=== PATIENT | female | born 1975 | race Caucasian/White ===

== ENCOUNTER 2024-08-05 16:50 | Emergency (ER) | payer BC, SELFPAY ==
[2024-08-05 17:00] VITALS: BP 116/73; PULSE 79; RESP 18; TEMP 36.4; O2SAT 99
--- NOTE | 2024-08-05 17:12 | ED_ITS ---
HPI - Ear Problem General Chief complaint: Ear Stated complaint: RT Ear Pain Source: patient Mode of arrival: ambulatory Limitations: no limitations History of Present Illness HPI Narrative: 49-year-old female presented for complaint of right ear pain for 10 days. Endorses the pain radiates towards the neck and behind the ear. Endorses intermittent ringing. She is taking ibuprofen. Denies ear drainage, dizziness, nausea, vomiting, fevers or chills. MD Complaint: ear pain Related Data Home Medications ?Medication ?Instructions ?Recorded ?Confirmed ?Last Taken ?Type No Home Medications 08/05/24 08/05/24 Unknown History Allergies Allergy/AdvReac Type Severity Reaction Status Date / Time No Known Allergies Allergy Mild Verified 08/05/24 17:06 Review of Systems Review of Systems: CONSTITUTIONAL: Denies malaise, chills, or fever. EYES: Denies visual changes, redness, or discharge. ENT: Denies rhinorrhea, congestion, sinus pain, and sore throat. Reports ear pain CARDIOVASCULAR: Denies chest pain, palpitations, or edema. RESPIRATORY: Denies cough or dyspnea. GASTROINTESTINAL: Denies abdominal pain, nausea, vomiting, diarrhea SKIN: Denies rash or itching. MUSCULOSKELETAL: Denies myalgia. NEUROLOGIC: Denies headache. All systems reviewed & are unremarkable except as noted in HPI and below PMFSH Past Medical History Medical History (Updated 08/05/24 @ 17:17 by Anayeli Mar APRN) Breast cancer Family History Family History Father Family history of coronary artery disease Sibling Family history of coronary artery disease Social History Social History Smoking status: Heavy tobacco smoker Alcohol intake: current Comments At time of signature, agree with nursing past medical, surgical, social and family history. There is no relevant family history pertinent to the presenting complaint Exam Narrative: GENERAL: Well-appearing EYES: PERRLA, conjunctivae clear ENT: Nares clear. Mucous membranes moist. TMs pearly mcdermott with dull light reflex bilaterally; no tragal tenderness. Oropharynx not erythematous without lesions. no drooling, no hoarseness, no trismus, uvula midline. NECK: Supple. No lymphadenopathy CHEST: Clear to auscultation, breath sounds equal. HEART: Regular rate and rhythm. No murmur heard. SKIN: Warm, dry, no rash. NEURO: Alert and oriented x3. PSYCH: Normal mood and affect Course Course Emergency Course: Patient is aware of diagnosis, understands and agrees to treatment plan. Anticipatory guidance given. Patient agrees to follow-up as directed and is aw are of reasons to seek care at the emergency department. Portions of this record may have been created with voice recognition software Level of Care: Express Care Visit Vital Signs Vital signs: Vital Signs Temperature 97.5 F L 08/05/24 17:00 Pulse Rate 79 08/05/24 17:00 Respiratory Rate 18 08/05/24 17:00 Blood Pressure 116/73 08/05/24 17:00 Pulse Oximetry 99 08/05/24 17:00 Oxygen Delivery Room Air 08/05/24 17:00 Temperature 97.5 F L 08/05/24 17:00 Pulse Rate 79 08/05/24 17:00 Respiratory Rate 18 08/05/24 17:00 Blood Pressure 116/73 08/05/24 17:00 Pulse Oximetry 99 08/05/24 17:00 Oxygen Delivery Room Air 08/05/24 17:00 Reviewed Medical Decision Making MDM Narrative Medical decision making narrative: Discussed physical exam findings c/w ETD. Advised supportive measures and signs/symptoms to go to the ER. Pt is appropriate for outpt treatment and f/u. Differential Diagnosis Differential Diagnosis: Coronavirus, strep pharyngitis, allergic rhinitis, upper respiratory tract infection, sinusitis, rhinosinusitis, nasopharyngitis, viral pharyngitis, otitis media, otitis externa, eustachian tube dysfunction, foreign body, cerumen impaction. Vital Signs Vital Signs: Vital Signs Temperature 97.5 F L 08/05/24 17:00 Pulse Rate 79 08/05/24 17:00 Respiratory Rate 18 08/05/24 17:00 Blood Pressure 116/73 08/05/24 17:00 Pulse Oximetry 99 08/05/24 17:00 Oxygen Delivery Room Air 08/05/24 17:00 Temperature 97.5 F L 08/05/24 17:00 Pulse Rate 79 08/05/24 17:00 Respiratory Rate 18 08/05/24 17:00 Blood Pressure 116/73 08/05/24 17:00 Pulse Oximetry 99 08/05/24 17:00 Oxygen Delivery Room Air 08/05/24 17:00 Discharge Plan Discharge Clinical Impression: Acute dysfunction of eustachian tube Patient Disposition: Home, Self-Care Condition: Stable Instructions: Antibiotic Form, Fluid In The Ear (Serous Otitis Media) (ED) Additional Instructions: Recommend antihistamine such as Benadryl, Zyrtec or Munira along with Flonase nasal spray, 1 spray in each nostril once daily until symptoms improve Tylenol and ibuprofen every 8 hours as needed to reduce fever, pain Please schedule a follow-up visit with your personal physician If your symptoms persist, change or worsen significantly, go to the emergency department for further evaluation. Patient Language: Nepali Prescriptions: No Action No Home Medications Follow-up/Referrals: PHYSICIAN,INFORMATICS APPLICATION ANALYST [Primary Care Provider] - Time of Disposition: 17:15
== END 2024-08-05 17:21 | disposition home or self-care (01) ==
PROVIDERS: Emergency Provider Nurse Practitioner Family
DX: H69.81 Other specified disorders of Eustachian tube, right ear (principal); Z85.3 Personal history of malignant neoplasm of breast; F17.290 Nicotine dependence, other tobacco product, uncomplicated
CPT/HCPCS: 99211; G0463

== ENCOUNTER 2025-01-14 00:33 | Day surgery (SDC) | payer BC, SELFPAY ==
[2025-01-11 12:44] VITALS: BMI 34.5
--- NOTE | 2025-01-11 12:51 | PC.NURSE ---
Report to the Outpatient Waiting Room, entrance under the green pavilion located off [facility], at time _1100_ on date _[id number]_. Planned Procedure Time: _1pm_.? Time changes happen often and if your time is changed the preop area will call you the afternoon before. - You and your visitor will be asked to self-screen and do not enter if you have any COVID symptoms. Please call surgeon if you need to reschedule. - A mask is optional within the hospital at this time. Patients may have clear liquids (water, carbonated beverages, clear teas, apple juice) until 3 hours prior to surgery with a maximum of 20 ounces. - No food from midnight until time of surgery and no smoking, or chewing tobacco (or any form of nicotine). No chewing gum, candy or mints. Take only the following medications with a SIP of water on the morning of surgery: ____None DO NOT STOP ANY OF YOUR OTHER PRESCRIPTION MEDICATIONS PRIOR TO SURGERY EXCEPT THE FOLLOWING Hold all vitamins and supplements for 3 days per anesthesiologist. Medications to discontinue per physician Date to take last dose Please no make-up, nail frisian, hairspray, perfume, deodorant, or body powder the day of surgery.? No jewelry (including any body piercings) or valuables the day of surgery, leave them at home.? Please take a shower or bath the night before, or the morning of, surgery with an antibacterial soap.? Wear comfortable, loose fitting clothing.? - Jewelry must be removed prior to entering the operating room.? Rings and piercings that are not removed may be cut off. - The hospital will not accept responsibility for valuables.? - Please leave all valuables, including medications, at home the day of surgery. If you are going home after surgery, a licensed delivery driver/customer service must drive you home.? - NO public transportation without another adult if you receive anesthesia. - We recommend that an adult stay with you for 24 hours following discharge. - We also recommend that you do not drive, make important decision, drink alcoholic beverages, or take any drugs that were not prescribed by your health care provider for at least 24 hours after your discharge time. Follow any additional instructions given to you from your surgeon. Telephone instructions given to __Angel___and asked if any additional questions and then verbalized understanding. Patient advised to call surgeon office or pre surgery nurse liaison [phone] if any additional questions.
[2025-01-14] VITALS (7 sets, daily range): BP systolic 112–136; BP diastolic 72–91; PULSE 65–89; RESP 14–19; TEMP 36.4–36.6; O2SAT 94–100
--- NOTE | ~2025-01-14 | XR_ITS ---
EXAMINATION: XR surgery orthopedic DATE: 01/14/2025 15:10 INDICATION: Right foot surgery TECHNIQUE: 2 images of portions of the right mid and forefoot were obtained during procedure performe d by Dr. Stark. Radiologist was not present for the imaging or procedure. The amount of fluoroscop y time used during this procedure was 0.6 minutes. Total DAP was 2.42 cGym^2. COMPARISON: None. FINDINGS: Dorsal plate and screw fixation spanning the first tarsal metatarsal joint. There is a cannulated com pression screw extending from medial to lateral across the base of the first and second metatarsals. Likely closing wedge osteotomy with staple fixation at the medial side of the proximal metaphyseal re gion of the first proximal phalanx. No fractures identified. 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 IMPRESSION: 1. Fluoroscopy utilized during orthopedic procedure at the right mid and forefoot as detailed above. See procedure note for further detail. Reviewed, dictated and finalized at location B. IMPRESSION: 1. Fluoroscopy utilized during orthopedic procedure at the right mid and forefo ot as detailed above. See procedure note for further detail.
--- OUTSIDE RECORDS SUMMARY | 2025-01-14 00:36 | XMS_ITS | Referral Summary ---
Author Organization [facility] Address [address] [place] [address] Care Team Providers Care Steam Drier Operator Name Role Phone No, Physician Primary Care Provider [phone] Allergies No known active allergies Medications meloxicam (MOBIC) 15 mg tablet Take 1 tablet (15 mg total) by mouth daily with breakfast Take 1 daily with food 30 tablet 4 Active Active Problems Problem Noted Date Diagnosed Date Arthralgia of shoulder 01/24/2012 Patellofemoral pain syndrome 01/24/2012 Social History Tobacco Use Types Packs/Day Years Used Date Smoking Tobacco: Every Day Cigarettes Tobacco Cessation:Ready to Q uit: Not Asked; Counseling Given: Not Answered Alcohol Use Standard Drinks/Week Comments Yes 0 (1 standard drink = 0.6 oz pur e alcohol) Comments Unknown Sex and Gender Information Value Date Recorded Sex Assigned at Not on file Legal Sex Female 1:[address] Gender Identity Not on file Sexual Orientation Not on file Last Filed Vital Signs Vital Sign Reading Time Taken Comments Blood Pressure - - Pulse - - Temperature - - Respiratory Rate - - Oxygen Saturation - - Inhaled Oxygen Concentration - - Weight 98 kg (216 lb) 04/08/2024 5:14 PM CDT Height 170.2 cm (5' 7) 04/08/2024 5:14 PM CDT Body Mass Index 33.83 04/08/2024 5:14 PM CDT Plan of Treatment Not on file [place] Care Teams Steam Drier Operator Relationship Specialty Start Date End Date No, Physician PCP - General 04/08/24
--- OUTSIDE RECORDS SUMMARY | 2025-01-14 00:36 | XMS_ITS | Clinical Summary ---
Author Organization [facility] Address [address] [place] [address] Care Team Providers Care Supervisor Ticket Sales Name Role Phone No, Physician Primary Care Provider [phone] Allergies No known active allergies Medications meloxicam (MOBIC) 15 mg tablet Take 1 tablet (15 mg total) by mouth daily with breakfast Take 1 daily with food 30 tablet 4 Active Active Problems Problem Noted Date Diagnosed Date Arthralgia of shoulder 01/24/2012 Patellofemoral pain syndrome 01/24/2012 Surgical History Surgery Date Site/Laterality Comments CHOLECYSTECTOMY 2005 Cholecystectomy Family History Medical History Relation Name Comments Heart disease Father Heart disease; Heart disease Other Family history of Heart disease; Relation Name Status Comments Father Other Social History Tobacco Use Types Packs/Day Years Used Date Smoking Tobacco: Every Day Cigarettes Tobacco Cessation:Ready to Q uit: Not Asked; Counseling Given: Not Answered Alcohol Use Standard Drinks/Week Comments Yes 0 (1 standard drink = 0.6 oz pur e alcohol) Comments Unknown Sex and Gender Information Value Date Recorded Sex Assigned at Not on file Legal Sex Female 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 Gender Identity Not on file Sexual Orientation Not on file Obstetrics History Last Filed Vital Signs Vital Sign Reading Time Taken Comments Blood Pressure - - Pulse - - Temperature - - Respiratory Rate - - Oxygen Saturation - - Inhaled Oxygen Concentration - - Weight 98 kg (216 lb) 04/08/2024 5:14 PM CDT Height 170.2 cm (5' 7) 04/08/2024 5:14 PM CDT Body Mass Index 33.83 04/08/2024 5:14 PM CDT Plan of Treatment Health Maintenance Due Date Last Done Comments Breast Cancer Screening-Mammogram 1974 Cervical Cancer Screening 1974 Colon Cancer Screening-Colonoscopy 1974 Depression Screening 1974 Hepatitis C Screening 1974 DTaP/Tdap/Td Vaccine (1 - Tdap) 1985 Hepatitis B Screening 1992 Regular Well Visit/Exam 18-64 1992 Pneumococcal vaccine <65 (1 of 2 - PCV) 1993 Zoster Vaccine (1 of 2) 2024 Influenza Vaccine (Season Ended) 2025 [place] Care Teams Supervisor Ticket Sales Relationship Specialty Start Date End Date No, Physician PCP - General 04/08/24
--- NOTE | 2025-01-14 07:06 | WPDHPUPDATE1 ---
History and Physical Update Update Date/Time: 01/14/25 07:06 History and Physical has been reviewed, including an updated exam of the patient. There are NO changes in the patient's condition. Risks, benefits, and alternatives have been discussed and questions answered. Patient agrees to proceed with procedure.
[2025-01-14] MEDS: LACTATED RINGERS 1,000 ML 30 ML IV CONT (12:00)
--- NOTE | 2025-01-14 12:44 | P.PNAN_ITS ---
Anes - Initial Pre Proc Eval Procedure: Operation Date: 01/14/25 13:00 Proposed Procedures p Lapidus Bunionectomy Right Foot, Magdy Phalangeal Osteotomy Right Hallux - Brain Stark Jr., DPM Date/Time: 01/14/25 12:44 Surgeon: Brain Stark Jr., DPM Pre Op Diagnosis: Bunion Right Foot Patient Data Age: 49 Gender: F Height: 1.7 m Weight: 101.2 kg Last Vital Signs Temp 36.6 C 01/14/25 12:00 Pulse 87 01/14/25 12:00 Resp 16 01/14/25 12:00 BP 115/75 01/14/25 12:00 Pulse Ox 98 01/14/25 12:00 O2 Del Method Room Air 01/14/25 12:00 Allergies Allergy/AdvReac Type Severity Reaction Status Date / Time No Known Allergies Allergy Mild Verified 01/14/25 12:40 Home Medications ?Medication ?Instructions ?Recorded ?Confirmed ?Type No Home Medications 08/05/24 01/11/25 History Patient hx anesthesia problems: none Family hx anesthesia problems: none Results Review: All pre-operative results and documents have been reviewed as part of the pre- operative evaluation. [facility] Past Medical History Medical History Breast cancer Family History Family History Father Family history of coronary artery disease Sibling Family history of coronary artery disease Social History Social History Smoking status: Former smoker Smoking end date: 07/13/22 Alcohol intake: former Living arrangements: with family Spiritual care concerns: No Anes - Eval Final PreProcedure Day of Procedure 01/14/25 12:44 Patient weight: obese Heart: regular rate and rhythm Lungs: decreased breath sounds Airway: Mallampati scale class II Neurological: alert and oriented Last oral intake: >/= 8 hours ASA classification: III Emergent: no Anesthesia type and monitoring: general LMA and standard monitoring Results Review: All pre-operative results and documents have been reviewed as part of the pre- operative evaluation. Informed Consent: The patient's anesthetic plan and its attendant risks and benefits were discussed with the patient/family/POA. Questions were solicited and answers provided to the satisfaction of the patient/family/POA.
[2025-01-14] MEDS: LIDOCAINE 2% LOCAL INJ 20 ML VIAL 10 ML INFILTRATE (13:59)
[2025-01-14] MEDS: ceFAZolin 2 GM/D5W 50 ML 2 GM/50 ML BAG IVPB (13:59)
[2025-01-14] MEDS: BUPivacaine HCL 0.5% 10 ML AMP INFILTRATE (13:59)
--- NOTE | 2025-01-14 15:35 | W.PM.PROC2 ---
Procedure Note - Detailed Date of Procedure 01/14/25 Pre-op Diagnosis Bunion Right Foot Post-op Diagnosis Same Procedure Performed 1. Lapidus Bunionectomy right foot 2. Magdy Phalangeal osteotomy right hallux Surgeon Brain Stark Jr., M Anesthesia General and Local Indications Painful right foot bunion Description of Procedure Under mild sedation, the patient was brought to the operating room, placed on the operating table in the supine position.? A pneumatic ankle tourniquet was placed about the patient's ankle. Following general anesthesia I performed an ankle ring block with 20cc of a 1:1 mix of 2% Lidocaine plain and 0.5% Marcaine plain, the foot was then scrubbed, prepped, and draped in the usual aseptic manner.? An Esmarch bandage was then used to examine the patient's foot and pneumatic ankle tourniquet was then inflated. ? Surgery began in the following manner.? Attention was directed to the dorsal aspect of the 1st metatarsocuneiform of the foot where fluoroscopy was used to identify the joint. ? A 3 cm incision was made overlying the dorsal aspect of the 1st metatarsocuneiform joint of the foot just medial to the extensor hallucis longus tendon.? The incision was then continued deep down through the subcutaneous tissues using sharp and blunt dissection.? All bleeders were ligated and cauterized as necessary.? At this point, the extensor tendon was identified and reflected laterally.? Next, the periosteum and capsular incision was made at the full length of the skin incision exposing the medial cuneiform as well as the base of the 1st metatarsal.? Next, a sagittal bone saw was introduced from dorsal to plantar across the 1st metatarsocuneiform joint in order to free up any ankylosed portions of the joint and also to release any adhesions. Two Steinmann Pins were driven from dorsal to plantar 1cm proximal and distal to the 1st metatarsal cuneiform joint. Next, a sharp curved osteotome and curette was used to resect the cartilage and subchondral bone and a 2.0mm drill bit was used to fenestrate the joint to promote fusion. ? At this point, a small 1 cm incision was made along the medial aspect of the 1st intermetatarsal space just medial to the second metatarsal head. Next, a lateral release consisting of a lateral capsule incision as well as release of the adductor hallucis tendon with the tenotomy as well as releasing the distal aspect and lateral aspect and proximal aspect of the fibular sesamoid.? After this, a lateral release was performed.? The hallux lateral deviation was noted to be reduced as far as the track-bound hallux. Next a 3cm incision was made medial to the first metatarsal head extending proximal to the proximal phalanx.? A 0.062 K wire was driven from dorsal medial to plantar lateral across the 1st metatarsal head and a second 0.062 K wire driven from the dorsal aspect of the second metatarsal head. Next, the Arthrex Lapidus clamp was used to obtain 3 plane correction of the hallux abductovalgus deformity. Fluoroscopy was used to make sure that the 1st MPJ was congruous and the sesamoid apparatus was centered under the first metatarsal and also to make certain that there was no elavatus of the first ray. ? Next, an Arthrex Headless 4.0 mm cannulated screw was driven from the medial base of the 1st metatarsal to the second metatarsal base under fluoroscopic guidance Excellent compression was noted across the joint. Moreover, the Arthrex dorsal Lapidus linear 4 hole plate was placed along the dorsal medial aspect of the 1st metatarsal cuneiform joint and the two 3.0mm proximal locking screws were drilled from dorsal to plantar. Next the one eccentrically drilled non locking screws was used to further compress the joint to ensure arthrodesis. Finally the most distal 3.0mm locking screw was drilled from dorsal to plantar across the plate into the metatarsal shaft. At this point the Arthrex Lapidus clamp was removed and fluoroscopy was used to make sure that the deformity correction was maintained. The patient still had slight hallux abductus so I made a closing medial base wedge resection from the base of the proximal phalanx and compressed the osteotomy with an Arthrex 7x9mm nitinol compression staple. After the Magdy osteotomy the hallux was noted to be in a rectus position. ? The periosteum and capsular structures were debrided performing a capsulorrhaphy which was reapproximated and coapted utilizing horizontal mattress as well as simple interrupted suture fashion technique along the 1st metatarsophalangeal joint and then 3-0 PDS was then used to reapproximate the medial capsule. Next the capsular and periosteal structures over the 1st metatarsocuneiform joint of the? foot.? Next, the subcutaneous structures were reapproximated and coapted utilizing 4-0 Vicryl.? Next, the skin was reapproximated and coapted utilizing 4-0 Monocryl in running subcuticular suture fashion technique. ? Upon completion of the procedure, the incision was dressed with Steri-Strips, Adaptic, 4 x 4's, Kerlix, and Coban.? The pneumatic ankle tourniquet was then deflated and a prompt hyperemic response noted to all digits of the foot. A posterior splint was then applied with the foot held 90 degrees to the leg. ? The patient did very well with the procedure and the anesthesia.? The patient was transferred to the recovery room with vital signs stable and vascular status intact to all toes of the foot.? Following a period of postoperative monitoring, the patient will be discharged home on the following written and oral postoperative instructions: 1. Keep the dressing clean, dry, and intact.? Use a cast protector bag with showers. 2. The patient to be strictly nonweightbearing with a knee scooter. 3. The patient should ice and elevate the? foot when at rest. 4. The patient to contact Dr. Stark for all postop care and if any problems arise. 5. Prescriptions were written for Percocet 5/325 dispensed 40 to be taken 1 p.o. q.4 to 6 hours as needed for severe pain. Implants Arthrex Lapidus Linear 4 hole plate with 3 locking and 1 non locking 3.0mm screws One Arthrex 4-0 Headless Cannulated Screw One Arthrex Nitinol 7x9mm Staple Estimated Blood Loss 1 Drains No Packing No Pathology None sent Complications No immediate complications Condition Stable Disposition Same day
[2025-01-14] MEDS: fentaNYL CITRATE INJ (*CRX) 100 MCG/2 ML VIAL 25 MCG IV PUSH ×4 (15:41→15:52)
[2025-01-14] MEDS: ONDANSETRON INJ 4 MG/2 ML VIAL IV PUSH (16:21)
[2025-01-14] MEDS: oxyCODONE HCL (*CRX) 5 MG TAB IR PO (16:59)
== END 2025-01-14 17:14 | disposition home or self-care (01) ==
PROVIDERS: Visit Provider Podiatrist Foot & Ankle Surgery
PROC: (CPT 28299; principal; 2025-01-14 13:00)
DX: M21.611 Bunion of right foot (principal); M20.11 Hallux valgus (acquired), right foot; E66.9 Obesity, unspecified; Z68.34 Body mass index [BMI] 34.0-34.9, adult; Z87.891 Personal history of nicotine dependence; Z85.3 Personal history of malignant neoplasm of breast; Z82.49 Family history of ischemic heart disease and other diseases of the circulatory system
CPT/HCPCS: 28298; 99199; A9270; C1713; C1769; J0690; J1100; J2003; J2250; J2405; J2704; J3010; J7120